=== PATIENT | male | born 1965 | race Caucasian/White ===

== ENCOUNTER 2016-10-17 10:38 | Emergency (ER) | payer OTHER ==
[~2016-10-17] VITALS: Ht 182.9 cm; Wt 89.0 kg
[~2016-10-17 10:38] MED LIST: DIPH2%T PO; EPIP0.3I IM; OMEP20CA5 PO; PRED20 PO; RANI150 PO
[2016-10-17 10:47] VITALS: BP 143/91; PULSE 76; RESP 16; TEMP 98; O2SAT 97
[2016-10-17 10:56] VITALS: RESP 16; O2SAT 97
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
[2016-10-17 11:00] VITALS: BP_SYST 118; BP_SYST 125; BP_DIAS 81; BP_DIAS 84; PULSE 64; RESP 16; O2SAT 96
[2016-10-17] MEDS ORDERED: SODIUM CHLORIDE 0.9% FLUSH 5 ML FLUSH IVF PRN (11:00)
[2016-10-17 11:06] LABS: AUTOMATED NEUTROPHIL # 3.3 TH/MM3 (1.8-7.7); BASOPHIL % 0.6 % (0.0-2.0); EOSINOPHIL % 0.6 % (0.0-4.0); HEMATOCRIT 45.5 % (39.0-51.0); HEMO FLAGS DIFF FINAL; LYMPH % 45.1 % (9.0-44.0); MEAN CELL VOLUME 85.3 FL (80.0-100.0); MEAN CORPUSCULAR HEMOGLOBIN 28.5 PG (27.0-34.0); MEAN CORPUSCULAR HGB CONC 33.4 % (32.0-36.0); MONO % 5.8 % (0.0-8.0); NEUT % 47.9 % (16.0-70.0); PLATELET COUNT 230 TH/MM3 (150-450); RED BLOOD COUNT 5.33 MIL/MM3 (4.50-5.90); RED CELL DISTRIBUTION WIDTH 12.1 % (11.6-17.2); WHITE BLOOD COUNT 6.7 TH/MM3 (4.0-11.0)
[2016-10-17 11:17] LABS: APTT (PATIENT) 28.1 SEC (24.3-30.1); INTERNATIONAL NORMALIZED RATIO 0.9 RATIO; PROTHROMBIN TIME - PATIENT 10.4 SEC (9.8-11.6)
--- NOTE | 2016-10-17 11:26 | RADHPO ---
EXAM DATE/TIME: 10/17/2016 11:18 [facility] COMPARISON: No previous studies available for comparison. INDICATIONS : Complains of chest pressure and heart palpitations. MEDICAL HISTORY : None. SURGICAL HISTORY : None. ENCOUNTER: Initial ACUITY: 1 day PAIN SCORE: 2/10 LOCATION: Bilateral chest FINDINGS: A single view of the chest demonstrates the lungs to be symmetrically aerated without evidence of mas s, infiltrate or effusion. The cardiomediastinal contours are unremarkable. Osseous structures are intact. CONCLUSION: 1. No acute cardiopulmonary disease. Ramesh Klein MD on October 17, 2016 at 11:24 Board Certified Radiologist. This report was verified electronically.
[2016-10-17 11:35] LABS: CHLORIDE 106 MEQ/L (98-107); POTASSIUM 4.2 MEQ/L (3.5-5.1); SODIUM (NA) 140 MEQ/L (136-145)
[2016-10-17 11:39] LABS: ANION GAP 8 MEQ/L (5-15); BICARBONATE 26.4 MEQ/L (21.0-32.0); BLOOD UREA NITROGEN 15 MG/DL (7-18); MAGNESIUM 2.2 MG/DL (1.5-2.5)
[2016-10-17 11:42] LABS: ALT (GPT) 20 U/L (12-78); AST (GOT) 14 U/L (15-37); GLOMERULAR FILTRATION RATE 87 ML/MIN (>89)
[2016-10-17 11:43] LABS: TOTAL BILIRUBIN ADULT 0.3 MG/DL (0.2-1.0)
[2016-10-17 11:45] LABS: ALKALINE PHOSPHATASE 71 U/L (45-117)
[2016-10-17 11:53] LABS: CREATINE KINASE 76 U/L (39-308)
[2016-10-17 12:14] VITALS: BP 116/77
--- NOTE | 2016-10-18 23:04 | EKG ---
Date Performed: 10/17/2016 Time Performed: 10:42:36 PTAGE: 51 years EKG: Sinus rhythm Normal ECG PREVIOUS TRACING : 08/20/2006 18.12 DOCTOR: Carlos A Mcneil Interpretating Date/Time 10/18/2016 22:55:04
== END 2016-10-17 12:23 | disposition home or self-care (01) ==
LOC: PHED 10:38
DX: R00.2 Palpitations (principal); R42 Dizziness and giddiness; R07.89 Other chest pain; E78.00 Pure hypercholesterolemia, unspecified
CPT/HCPCS: 71010; 80053; 82550; 83735; 84484; 85025; 85610; 85730; 93005

== ENCOUNTER 2018-03-11 13:36 | Emergency (ER) | payer OTHER ==
[~2018-03-11] VITALS: Ht 182.9 cm; Wt 90.0 kg
[2018-03-11 13:40] VITALS: BP 151/81; PULSE 63; RESP 16; TEMP 98.5; O2SAT 100
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
[2018-03-11] MEDS ORDERED: ONDANSETRON ODT 4 MG TAB PO ONE (14:45)
[2018-03-11] MEDS ORDERED: ACETAMINOPHEN 325 MG TAB PO ONE (14:45)
[2018-03-11] MEDS ORDERED: IBUP1TAB7 PO (14:54)
[2018-03-11] MEDS ORDERED: CYCL10TA PO (14:54)
== END 2018-03-11 15:05 | disposition home or self-care (01) ==
LOC: NEPD 13:36
DX: S16.1XXA Strain of muscle, fascia and tendon at neck level, initial encounter (principal); M62.838 Other muscle spasm; R51 Headache; R20.2 Paresthesia of skin; E78.00 Pure hypercholesterolemia, unspecified; K21.9 Gastro-esophageal reflux disease without esophagitis; V89.2XXA Person injured in unspecified motor-vehicle accident, traffic, initial encounter
CPT/HCPCS: 72125; 99283